=== PATIENT | female | born 1980 | race Caucasian/White ===

== ENCOUNTER 2025-07-05 13:52 | Emergency (ER) | payer OTHER ==
[~2025-07-05] VITALS: Ht 162.6 cm; Wt 69.0 kg
[2025-07-05 14:00] VITALS: O2SAT 99
[2025-07-05 14:40] LABS: BASOPHILS % 0.7 % (0.0-2.0); EOSINOPHILS % 0.3 % (0.0-5.0); HEMATOCRIT. 33.7 % (36.0-48.0); HEMOGLOBIN. 11.0 g/dL (12.0-16.0); LYMPHOCYTES % 20.2 % (20.0-50.0); MEAN PLATELET VOLUME 9.2 fl (7.4-10.4); MONOCYTES % 4.2 % (2.0-8.0); NEUTROPHILS % 74.6 % (40.0-76.0); PLATELET 210 x1000/uL (130-400); RED BLOOD CELL COUNT 4.39 mill/uL (4.2-5.4); RED CELL DISTRIBUTION WIDTH 16.5 % (11.6-14.6)
[2025-07-05 14:54] LABS: CREATININE 1.0 mg/dL (0.6-1.0); UREA NITROGEN BLOOD 12 mg/dL (9-23)
[2025-07-05 14:55] LABS: TROPONIN I HIGH SENSITIVITY 6 ng/L (3.0-34)
[2025-07-05 17:17] LABS: TROPONIN I HIGH SENSITIVITY 6 ng/L (3.0-34)
[2025-07-05 18:04] VITALS: BP 120/78; PULSE 70; RESP 16; TEMP 36.9; O2SAT 100
== END 2025-07-05 18:05 | disposition home or self-care (01) ==
LOC: ER 13:52
DX: R07.89 Other chest pain (principal); I10 Essential (primary) hypertension
CPT/HCPCS: 80048; 85025; 84484; 36415; 71045; 93005; 99285; Z7610; A4606